=== PATIENT | female | born 2000 | race Two or more races ===

== ENCOUNTER 2020-05-04 16:11 | Emergency (ER) | payer OTHER ==
[2020-05-04] MEDS ORDERED: HYDROCODONE/ACETAMINOPHEN 5-325 MG TABLET PO ONE (16:53)
--- NOTE | 2020-05-04 17:32 | RADIOLOGY REPORT (SQ) ---
EXAM DESCRIPTION: FOOT LEFT COMPLETE IMAGES COMPLETED DATE/TIME: 05/04/2020 5:17 pm REASON FOR STUDY: injury COMPARISON: None. NUMBER OF VIEWS: Three views. TECHNIQUE: AP, lateral and oblique radiographic images acquired of the left foot. LIMITATIONS: None. FINDINGS: MINERALIZATION: Normal. BONES: No acute fracture or dislocation. No worrisome bone lesions. JOINTS: No effusions. SOFT TISSUES: No soft tissue swelling. No foreign body. OTHER: No other significant finding. IMPRESSION: NEGATIVE STUDY OF THE LEFT FOOT. NO RADIOGRAPHIC EVIDENCE OF ACUTE INJURY. TECHNICAL DOCUMENTATION: JOB ID: [id number] 2010 [employer]- All Rights Reserved Reading location - IP/workstation name: [email or web address]
--- NOTE | 2020-05-04 17:36 | ER Document Report ---
HPI - HPI Patient complains to provider of: left foot injury Time Seen by Provider: 05/04/20 16:49 Pain Level: 4 Context: 20-year-old female presents to the emergency room complaining of left foot pain. States while she was at work today they were moving fitness equipment around when 1 of the pieces equipment fell landing on her left foot. States she was wearing steel toe boots at the time. States is able to walk but is painful. No medications for symptoms prior to arrival. No history of previous trauma or injury to her foot. Denies . Associated Symptoms: None Exacerbated by: Movement, Walking Relieved by: Remaining still Similar symptoms previously: No Recently seen / treated by doctor: No - ROS Systems Reviewed and Negative: Yes All other systems reviewed and negative - CONSTITUTIONAL Constitutional: DENIES: Fever, Chills - EENT EENT: DENIES: Sore Throat, Ear Pain, Eye problems - NEURO Neurology: DENIES: Headache, Weakness, Vision blurred - CARDIOVASCULAR Cardiovascular: DENIES: Chest pain - RESPIRATORY Respiratory: DENIES: Trouble Breathing, Coughing - GASTROINTESTINAL Gastrointestinal: DENIES: Abdominal Pain, Black / Bloody Stools - URINARY Urinary: DENIES: Dysuria, Urgency - REPRODUCTIVE LMP: last month Reproductive: DENIES: : - MUSCULOSKELETAL Musculoskeletal: REPORTS: Extremity pain - lef tfoot - DERM Skin Color: Normal Past Medical History - General Information source: Patient - Social History Smoking Status: Never Smoker Chew tobacco use (# tins/day): No Frequency of alcohol use: None Drug Abuse: None Family History: Reviewed & Not Pertinent Patient has homicidal ideation: No Vertical Provider Document - CONSTITUTIONAL Agree With Documented VS: Yes Exam Limitations: No Limitations General Appearance: Mild Distress - HEENT HEENT: Atraumatic, Normocephalic - NECK Neck: Normal Inspection, Supple, Thyroid Normal - RESPIRATORY Respiratory: Breath Sounds Normal, No Respiratory Distress, Chest Non-Tender - CARDIOVASCULAR Cardiovascular: No Murmur, Tachycardia - MUSCULOSKELETAL/EXTREMETIES Musculoskeletal/Extremeties: Tender - Tenderness and swelling to the left la teral foot. Painful range of motion with flexion, extension left foot. Nontender with eversion and inversion of the left foot. There is no obvious deformity noted. - NEURO Level of Consciousness: Awake, Alert, Appropriate Motor/Sensory: No Motor Deficit, No Sensory Deficit Notes: Positive left pedal pulse. Capillary refill less than 3 seconds. - DERM Integumentary: Warm, Dry, No Rash Course - Re-evaluation Re-evalutation: 05/04/20 17:38 Patient is resting comfortably with decreased pain. Reviewed x-ray results with patient. Crutches and postop shoe as documented by nursing staff. Weightbe aring as tolerated. Tylenol and or Motrin as needed for pain. Rest, ice, elevate your left foot. Follow-up with her employer for referral to Worker's [employer] if unable to return to work in 2 to 3 days. Also provided on-call orthopedist but counseled patient she would need to verify that she can see that particular orthopedist through her [employer] company. Can remove shoe at bedtime and to bathe. Patient was given strict return to the emergency room guidelines. Return for any new or worsening symptoms. All questions were answered. Patient verbalized understanding and agrees with plan of care. 05/04/20 17:50 - Vital Signs Vital signs: Temp Pulse Resp BP Pulse Ox 98.5 F 95 18 135/80 H 100 05/04/20 16:22 05/04/20 16:22 05/04/20 16:22 05/04/20 16:22 05/04/20 16:22 - Diagnostic Test Radiology reviewed: Reports reviewed Procedures - Immobilization Left Foot Time completed: 17:50 Pre-Proc Neuro Vasc Exam: Normal Immobilizer type: Crutches, Post-op shoe Performed by: PCT Post-Proc Neuro Vasc Exam: Normal Alignment checked and good: Yes Discharge - Discharge Clinical Impression: Contusion of left foot Qualifiers: Encounter type: initial encounter Qualified Code(s): S90.32XA - Contusion of left foot, initial encounter Condition: Stable Disposition: HOME, SELF-CARE Instructions: Contusion ([facility]) Additional Instructions: Rest, ice, elevate your left foot. Weightbearing as tolerated. Outpatient follow-up with your employer to Worker's Comp. if not improving in 2 to 3 days. You have also been provided with the on-call orthopedist. Tylenol and/or Motrin as needed for pain. Return to the emergency room for any new or worsening symptoms. Referrals: GARCÍA WHYTE, [ACTIVE STAFF] - Follow up as needed
[2020-05-04 17:45] VITALS: BP 140/87
== END 2020-05-04 17:46 | disposition home or self-care (01) ==
LOC: ER 16:11
DX: S90.32XA Contusion of left foot, initial encounter (principal); M79.672 Pain in left foot; W20.8XXA Other cause of strike by thrown, projected or falling object, initial encounter; Y93.89 Activity, other specified; Y92.59 Other trade areas as the place of occurrence of the external cause; Y99.0 Civilian activity done for income or pay
CPT/HCPCS: 99283